=== PATIENT | female | born 1985 | race Caucasian/White ===

== ENCOUNTER → 2024-02-13 | Day surgery (SDC) | payer BC ==
[2024-02-07 08:54] LABS: BASOPHILS # (AUTO) 0.1 (0.0-0.1); BASOPHILS % 0.7 % (0.0-1.0); EOSINOPHILS # (AUTO) 0.1 (0.0-0.4); EOSINOPHILS % 1.6 % (0.0-6.0); HEMATOCRIT 44.8 % (34.2-44.1); LYMPHOCYTES # (AUTO) 2.4 (1.0-3.2); LYMPHOCYTES % 35.1 % (18.0-39.1); MEAN CORPUSCULAR HEMOGLOBIN 33.4 pg (28-32); MEAN CORPUSCULAR HGB CONC 33.5 g/dL (31-35); MEAN CORPUSCULAR VOLUME 99.8 fL (81-99); MONOCYTES # (AUTO) 0.7 (0.2-0.8); MONOCYTES % 10.4 % (4.4-11.3); NEUTROPHILS # (AUTO) 3.6 (2.1-6.9); NEUTROPHILS % 52.1 % (38.7-80.0); PLATELET COUNT 185 x10e3/uL (140-360); RED BLOOD COUNT 4.49 x10e6/uL (3.6-5.1); RED CELL DISTRIBUTION WIDTH 11.9 % (11.7-14.4); WHITE BLOOD COUNT 6.95 x10e3/uL (4.8-10.8)
[2024-02-07 09:17] LABS: ALBUMIN 4.2 g/dL (3.5-5.0); ALBUMIN/GLOBULIN RATIO 1.3 (0.8-2.0); ANION GAP 17.4 mmol/L (8-16); BILIRUBIN,TOTAL 0.4 mg/dL (0.2-1.2); CALCIUM 9.4 mg/dL (8.4-10.2); CREATININE, SERUM 0.84 mg/dL (0.57-1.11); POTASSIUM 4.4 mmol/L (3.5-5.1); TOTAL PROTEIN 7.4 g/dL (6.5-8.1)
[~2024-02-13] MED LIST: ACETAMINOPHEN 1000 MG/100 ML IV ONE; B COMPLEX1 EACH; BIOTIN1 MG; CALCIUM ACETAT667 MG PO; D3-5000125 MCG; DEXAMETHASONE SOD PHOS INJ 4 MG/ML SDV ONE; FENTANYL CITRATE/PF 100MCG/2 ML INJ ONE; FLUOXETINE HCL10 MG PO; FOLIC ACID0.4 MG PO; KETOROLAC TROMETHAMINE 30 MG/ML VIAL ONE; LIDOCAINE HCL 1% LOCAL INJ 20 ML VIAL ONE; LIDOCAINE HCL 2% LOCAL INJ 5 ML SDV VIAL INJ ONE; ONDANSETRON HCL INJ 2MG/ML 2ML 2 MG/ML VIAL ONE; PROPOFOL IV EMULSION 10 MG/ML 20 ML VIAL ONE; SEVOFLURANE INHAL SOLN 250 ML PEN BTL ONE; STRATTERA40 MG PO; VITAMIN C1000 MG PO; ZINC
[2024-02-13] MEDS: LACTATED RINGER'S 1,000 ML ONE (11:47)
[2024-02-13] MEDS: SCOPOLAMINE 1 MG PATCH ONE (11:47)
[2024-02-13] MEDS: HYDROCODONE/APAP 5MG-325MG TAB ONE (12:50)
[2024-02-13 12:55] VITALS: BP 126/68; PULSE 84; RESP 14; TEMP 97.5; O2SAT 99
== END | disposition home or self-care (01) ==
LOC: OR 07:18
PROVIDERS: ATTEND Surgery
DX: N64.89 Other specified disorders of breast (principal); N60.22 Fibroadenosis of left breast; R92.0 Mammographic microcalcification found on diagnostic imaging of breast; D89.89 Other specified disorders involving the immune mechanism, not elsewhere classified; F98.8 Other specified behavioral and emotional disorders with onset usually occurring in childhood and adolescence; Z01.810 Encounter for preprocedural cardiovascular examination; Z01.812 Encounter for preprocedural laboratory examination; Z79.899 Other long term (current) drug therapy
CPT/HCPCS: 19281; 19301; 36415; 76098; 80053; 81025; 85025; 88307; 88342; 93005; J0131; J1100; J1885; J2001 ×2; J2405; J2704; J3010; J7121; 88304